=== PATIENT | male | born 1980 | race Caucasian/White ===

== ENCOUNTER 2017-08-12 18:07 | Emergency (ER) | payer OTHER ==
[~2017-08-12] VITALS: Ht 175.3 cm; Wt 75.6 kg
[2017-08-12 18:59] LABS: HEMATOCRIT 37.9 % (38.0-50.0); HEMOGLOBIN 13.6 G/DL (12.5-16.6); MCH 31.7 PG (29.0-34.0); MCHC 35.9 G/DL (30.0-36.0); MCV 88.3 FL (86-99); PLATELET COUNT 241 K/uL (156-360); RBC DIS.WIDTH-CV 12.4 % (11.8-14.6); RBC DIS.WIDTH-SD 40.1 % (39-53); RED BLOOD COUNT 4.29 M/uL (4.00-5.50); WHITE BLOOD COUNT 7.8 K/uL (4.1-10.2)
[2017-08-12 19:10] LABS: CHLORIDE 105 mEq/L (99-109); POTASSIUM 3.8 mEq/L (3.7-5.4); SODIUM 140 mEq/L (136-147)
[2017-08-12 19:12] LABS: GLUCOSE 99 mg/dL (70-99)
[2017-08-12 19:16] LABS: CREATININE 1.1 mg/dL (0.6-1.3)
[2017-08-12 19:17] LABS: UREA NITROGEN (BUN) 16 mg/dL (9-23)
[2017-08-12 19:20] LABS: TROP-I INTERPRETATION NEGATIVE; TROPONIN-I < 0.01 ng/mL (0.0-0.30)
[2017-08-12 19:21] LABS: GFR ESTIMATE (CALCULATED) > 59 mL/min/ (58.99-99999)
[2017-08-12] MEDS ORDERED: ATIVAN1 MG PO (21:51)
[2017-08-12 22:10] LABS: TROP-I INTERPRETATION NEGATIVE; TROPONIN-I < 0.01 ng/mL (0.0-0.30)
[2017-08-12 22:33] VITALS: BP 133/84
== END 2017-08-12 22:34 | disposition home or self-care (01) ==
LOC: EME 18:07
PROVIDERS: Emergency Medicine Emergency Medical Services
DX: R07.9 Chest pain, unspecified (principal); F41.9 Anxiety disorder, unspecified
CPT/HCPCS: 71045; 80048; 84484; 85027; 93005; 99281; 99284